=== PATIENT | female | born 1975 | race Caucasian/White ===

== ENCOUNTER 2017-09-17 11:16 | Emergency (ER) | payer SELFPAY ==
[~2017-09-17] VITALS: Ht 172.7 cm; Wt 130.2 kg
[~2017-09-17 11:16] MED LIST: ACHYD1T PO; CEPH500C PO; DCS100C PO; DOCO100C PO; IBP800T PO; PREN-115 PO
[2017-09-17] MEDS ORDERED: ORPHENADRINE 60 MG/2 ML (NORFLEX) AMP IV ONE (11:45)
[2017-09-17] MEDS ORDERED: KETOROLAC 30 MG/ML VIAL IVP ONE (11:45)
--- NOTE | 2017-09-17 11:48 | ED Back Pain ---
General Chief Complaint: Back Problems Stated Complaint: BACK PAIN--FALL X 1DAY Source of Information: Patient Exam Limitations: No Limitations History of Present Illness Date Seen by Provider: Sep 17, 2017 Time Seen by Provider: 11:45 Initial Comments To ER with reports of low back pain worse than usual that started yesterday after a fall. The pain is very low back left of midline and inferior to her incision from previous back surgery. She's had a couple of discectomies and has seen Dr. Olivares at [facility]. She is on hydrocodone and baclofen for her chronic low back pain. Last night, upon standing she lost control of urine, did not have the urge to urinate. She denies any saddle anesthesia. The pain does radiate down the left leg. Allergies and Home Medications Allergies Coded Allergies: morphine (Unverified Allergy, Unknown, NAUSEA, 04/14/12) Emesis promethazine HCl (Unverified Allergy, Unknown, 04/14/12) Restless Legs Patient Home Medication List Home Medication List Reviewed: Yes Constitutional: see HPI, No chills, No fever EENTM: see HPI Respiratory: no symptoms reported Cardiovascular: no symptoms reported Genitourinary: no symptoms reported Musculoskeletal: see HPI, back pain Skin: no symptoms reported Psychiatric/Neurological: No Symptoms Reported Past Xnnhoqm-Fvbzhv-Zfuqbw Hx Patient Social History Alcohol Use: Denies Use Recreational Drug Use: No Smoking Status: Current Everyday Smoker Type Used: Cigarettes Recent Foreign Travel: No Contact w/Someone Who Travel: No Recent Hopitalizations: No Physical Abuse: No Sexual Abuse: No Immunizations Up To Date Date of Influenza Vaccine: Mar 29, 2012 Surgeries History of Surgeries: Yes (gallbladder-2004) Surgeries: Section Respiratory History of Respiratory Disorde: No Cardiovascular History of Cardiac Disorders: No Cardiac Disorders: High Cholesterol Neurological History of Neurological Disord: Yes Neurological Disorders: Headaches /Migraines Reproductive System Hx Reproductive Disorders: No Genitourinary History of Genitourinary Disor: No Gastrointestinal History of Gastrointestinal Di: Yes Musculoskeletal History of Musculoskeletal Dis: Yes Musculoskeletal Disorders: Back Injury, Chronic Back Pain Endocrine History of Endocrine Disorders: Yes Endocrine Disorders: Diabetes, Non-Insulin dep Psychosocial History of Psychiatric Problem: No Suicide Risk Score: 0 Integumentary History of Skin or Integumenta: No Blood Transfusions History of Blood Disorders: No Physical Exam Vital Signs Vital Signs - First Documented 09/17/17 11:25 Temp 97.9 Pulse 108 Resp 18 B/P (MAP) 127/90 (102) Pulse Ox 99 Capillary Refill : General Appearance: No Apparent Distress, WD/WN, Obese HEENT: PERRL/EOMI, TMs Normal Neck: Full Range of Motion, Normal Inspection Respiratory: No Accessory Muscle Use, No Respiratory Distress Gastrointestinal: Normal Bowel Sounds, Non Tender, Soft Extremity: Normal Capillary Refill, Normal Inspection Neurologic/Psychiatric: Alert, Oriented x3 Skin: Normal Color, Warm/Dry Progress/Results/Core Measures Results/Orders Lab Results Laboratory Tests Test 09/17/17 13:35 Range/Units Urine Color YELLOW Urine Clarity CLEAR Urine pH 6 5-9 Urine Specific [place] 1.010 L 1.016-1.022 Urine Protein NEGATIVE NEGATIVE Urine Glucose (UA) NEGATIVE NEGATIVE Urine Ketones NEGATIVE NEGATIVE Urine Nitrite NEGATIVE NEGATIVE Urine Bilirubin NEGATIVE NEGATIVE Urine Urobilinogen NORMAL NORMAL MG/DL Urine Leukocyte Esterase NEGATIVE NEGATIVE Urine RBC (Auto) 1+ H NEGATIVE Urine RBC NONE /HPF Urine WBC RARE /HPF Urine Squamous Epithelial Cells 5-10 /HPF Urine Crystals NONE /LPF Urine Bacteria TRACE /HPF Urine Casts NONE /LPF Urine Mucus SMALL H /LPF Urine Culture Indicated NO My Orders Orders - LIVIA TOLBERT APRN Saline Lock/Iv-Start (09/17/17 11:44) Orphenadrine Injection (Norflex Injectio (09/17/17 11:45) Mri Lumbar Spine W/O Contrast (09/17/17 11:44) Ketorolac Injection (Toradol Injection) (09/17/17 11:45) Ua Culture If Indicated (09/17/17 12:21) Medications Given in ED Current Medications Medications Dose Ordered Sig/Candy Route Start Time Stop Time Status Last Admin Dose Admin Ketorolac Tromethamine 30 mg ONCE ONCE IVP 09/17/17 11:45 09/17/17 11:46 DC 09/17/17 12:13 30 MG Orphenadrine Citrate 60 mg ONCE ONCE IV 09/17/17 11:45 09/17/17 11:46 DC 09/17/17 12:09 60 MG Vital Signs/I&O Vital Sign - Last 12Hours 09/17/17 11:25 Temp 97.9 Pulse 108 Resp 18 B/P (MAP) 127/90 (102) Pulse Ox 99 Diagnostic Imaging Diagonstic Imaging: MRI Comments NAME: G[facility]LO [facility] REC#: [id number] PT STATUS: REG ER : 1975 PHYSICIAN: LIVIA TOLBERT APRN ADMIT DATE: 09/17/17/ER Draft Date of Exam:09/17/17 MRI LUMBAR SPINE W/O CONTRAST PROCEDURE: MRI lumbar spine. TECHNIQUE: A multiplanar/multisequence MRI of the lumbar spine was performed without contrast. INDICATION: Long history of low back pain with three prior surgeries. The patient had a recent fall with increased pain. COMPARISON: No prior examinations are available for comparison. FINDINGS: The alignment of the lumbar spine is grossly normal. The vertebral body heights are well-maintained. There is no spondylolysis or spondylolisthesis. No fractures are identified. The conus medullaris is seen at L1 and is normal in appearance. T11-12: Unremarkable. T12-L1: Unremarkable. L1-2: There is some hypertrophic degenerative facet disease. There is no annular bulging. There is no spinal or neuroforaminal encroachment. L2-3: There is marked broad-based annular bulging and severe facet disease with thickening of the ligamentum flavum. There is severe central spinal stenosis with marked encroachment upon the lateral recess bilaterally. There is moderate bilateral neuroforaminal encroachment. L3-4: There is some broad-based annular bulging, facet disease, and thickening of the ligamentum flavum. There is encroachment upon the lateral recess bilaterally, right greater than left. There is mild central spinal stenosis. There is at least moderate right neuroforaminal encroachment and mild to moderate left neuroforaminal encroachment. L4-5: There is broad-based annular bulging and facet disease. There is encroachment upon the right lateral recess. There is moderately severe right neuroforaminal encroachment. There is moderate left neuroforaminal encroachment. L5-S1: The disc demonstrates minimal annular bulging. The abdominal aorta is nonaneurysmal. The kidneys are unremarkable. IMPRESSION: Moderately severe diffuse lumbar spondylosis and multilevel degenerative disc disease as discussed above. This is most severe at L2-3. Dictated on workstation # [id number] Dict: 09/17/17 1330 Trans: 09/17/17 1341 [id number] Interpreted by: WARREN SALAZAR MD Electronically signed by: Departure Communication (Admissions) Progress Notes Due to concern for neurogenic bladder/cauda equina syndrome we'll proceed with MRI lumbar spine. 1355-she does have the urge to urinate and was able to provide us with a urine sample so is not a neurogenic bladder. Postvoid residual bladder scan pending. 1401-Post void residual bladder scan 20ml Impression Impression: Primary Impression: Lumbar spinal stenosis Disposition: HOME, SELF-CARE Condition: Stable Departure-Patient Inst. Decision time for Depature: 14:01 Referrals: [facility] Primary Care Physician MARCELINO MORRIS (Family) Primary Care Physician Patient Instructions: Spinal Stenosis (DC), Spinal Stenosis Strengthening Exercises, Spinal Stenosis Stretching Exercises Add. Discharge Instructions: 1. REturn to ER for any concerns 2. Follow up with Dr Olivares. Call Indira his energy scheduler direct at [phone] today to make an appointment 3. All discharge instructions reviewed with patient and/or family. Voiced understanding. Images Torso/Trunk 1 - Tenderness Copy Copies To 1: TRELL OLIVARES MD, PETER J APRN Sep 17, 2017 11:48
[2017-09-17] MEDS ORDERED: BACL10TA (11:50)
[2017-09-17] MEDS ORDERED: ATOR10TA66 (11:50)
[2017-09-17] MEDS ORDERED: GABA-488 (11:50)
[2017-09-17] MEDS ORDERED: DULO60CA58 (11:50)
[2017-09-17] MEDS ORDERED: METF500T8 (11:50)
[2017-09-17] MEDS ORDERED: HYDR-3820 (11:50)
[2017-09-17 13:42] LABS: BILIRUBIN,URINE NEGATIVE (NEGATIVE); CLARITY,URINE CLEAR; COLOR,URINE YELLOW; GLUCOSE, URINE (UA) NEGATIVE (NEGATIVE); KETONES,URINE NEGATIVE (NEGATIVE); LEUKOCYTE ESTERASE ,URINE NEGATIVE (NEGATIVE); NITRITE,URINE NEGATIVE (NEGATIVE); PH,URINE 6 (5-9); PROTEIN,URINE NEGATIVE (NEGATIVE); UROBILINOGEN,URINE NORMAL (NORMAL)
--- NOTE | 2017-09-17 13:42 | Diagnostic Imaging Report ---
PROCEDURE: MRI lumbar spine. TECHNIQUE: A multiplanar/multisequence MRI of the lumbar spine was performed without contrast. INDICATION: Long history of low back pain with three prior surgeries. The patient had a recent fall with increased pain. COMPARISON: No prior examinations are available for comparison. FINDINGS: The alignment of the lumbar spine is grossly normal. The vertebral body heights are well-maintained. There is no spondylolysis or spondylolisthesis. No fractures are identified. The conus medullaris is seen at L1 and is normal in appearance. T11-12: Unremarkable. T12-L1: Unremarkable. L1-2: There is some hypertrophic degenerative facet disease. There is no annular bulging. There is no spinal or neuroforaminal encroachment. L2-3: There is marked broad-based annular bulging and severe facet disease with thickening of the ligamentum flavum. There is severe central spinal stenosis with marked encroachment upon the lateral recess bilaterally. There is moderate bilateral neuroforaminal encroachment. L3-4: There is some broad-based annular bulging, facet disease, and thickening of the ligamentum flavum. There is encroachment upon the lateral recess bilaterally, right greater than left. There is mild central spinal stenosis. There is at least moderate right neuroforaminal encroachment and mild to moderate left neuroforaminal encroachment. L4-5: There is broad-based annular bulging and facet disease. There is encroachment upon the right lateral recess. There is moderately severe right neuroforaminal encroachment. There is moderate left neuroforaminal encroachment. L5-S1: The disc demonstrates minimal annular bulging. The abdominal aorta is nonaneurysmal. The kidneys are unremarkable. IMPRESSION: Moderately severe diffuse lumbar spondylosis and multilevel degenerative disc disease as discussed above. This is most severe at L2-3. Dictated by: Dictated on workstation # [id number]
[2017-09-17 14:05] LABS: BACTERIA,URINE TRACE /HPF; WBC,URINE RARE /HPF
[2017-09-17 14:28] VITALS: BP 127/82
== END 2017-09-17 14:28 | disposition home or self-care (01) ==
LOC: EDUNIT# 11:16 → ER 11:18
DX: M48.061 Spinal stenosis, lumbar region without neurogenic claudication (principal); G43.909 Migraine, unspecified, not intractable, without status migrainosus; E78.00 Pure hypercholesterolemia, unspecified; E11.9 Type 2 diabetes mellitus without complications; F17.210 Nicotine dependence, cigarettes, uncomplicated; Z87.59 Personal history of other complications of pregnancy, childbirth and the puerperium; Z88.5 Allergy status to narcotic agent; Z88.8 Allergy status to other drugs, medicaments and biological substances
CPT/HCPCS: 72148; 81000; 96374; 96375

== ENCOUNTER 2019-08-20 18:49 | Emergency (ER) | payer OTHER ==
[~2019-08-20 18:49] MED LIST changes: +ATOR10TA66; +BACL10TA; +DULO60CA59; +GABA-488; +HYDR-3820; +METF500T19
== END 2019-08-20 19:31 | disposition left against medical advice (07) ==
LOC: EDUNIT# 18:49 → ER 18:51
DX: M54.2 Cervicalgia (principal); W19.XXXA Unspecified fall, initial encounter

== ENCOUNTER 2020-07-18 12:06 | Emergency (ER) | payer MEDICARE, OTHER ==
[~2020-07-18] VITALS: Ht 173 cm; Wt 109.0 kg
[~2020-07-18 12:06] MED LIST changes: +ACHYD1T; -HYDR-3820; +METF-865; -METF500T19
[2020-07-18] MEDS ORDERED: ALPRAZolam 0.5 MG (XANAX) TAB PO SCH (12:45)
--- NOTE | 2020-07-18 12:45 | NUR ---
report given to wilfred.
--- NOTE | 2020-07-18 12:45 | ED Psychosocial ---
General Chief Complaint: Psych/Social Disorder Stated Complaint: PSYCH EVAL Source: patient Exam Limitations: no limitations History of Present Illness Date Seen by Provider: Jul 18, 2020 Time Seen by Provider: 12:43 Initial Comments To ER by private vehicle with request for help with the anxiety attacks and mental health. She recently left her as she states he is very controlling and has PTSD that he will not treat. She has had some intermittent depression over the years. About 2 weeks ago she developed racing thoughts intermittent panic attacks. She drove to [place] and ended up stuck out in a field and believed that she was talking to God. She talks at length about her right brain talking to her left brain. She states that she does not have any thoughts of hurting herself or anyone else and ideally she would like to start some medication today and get established with someone to be seen for mental health. Timing/Duration: constant Severity: moderate Associated Symptoms: anxiety, impaired concentration Allergies and Home Medications Allergies Coded Allergies: morphine (Unverified Allergy, Unknown, NAUSEA, 04/14/12) Emesis promethazine HCl (Unverified Allergy, Unknown, 04/14/12) Restless Legs Home Medications Lorazepam 1 Mg Tablet, 1 MG PO BID PRN for ANXIETY Prescribed by: LIVIA TOLBERT on 07/18/20 1351 Patient Home Medication List Home Medication List Reviewed: Yes Review of Systems Constitutional: see HPI EENTM: see HPI Respiratory: no symptoms reported Cardiovascular: no symptoms reported Genitourinary: no symptoms reported Musculoskeletal: no symptoms reported Skin: no symptoms reported Psychiatric/Neurological: See HPI, Anxiety, Depressed Past Qgpofgs-Yeavtg-Oduijo Hx Patient Social History Type Used: Cigarettes Recent Hopitalizations: No Immunizations Up To Date Date of Influenza Vaccine: Mar 29, 2012 Past Medical History Surgeries: Yes (gallbladder-2004) Section Respiratory: No Cardiac: No High Cholesterol Neurological: Yes Headaches /Migraines Reproductive Disorders: No Genitourinary: No Gastrointestinal: Yes Musculoskeletal: Yes Back Injury, Chronic Back Pain Endocrine: Yes Diabetes, Non-Insulin dep Psychosocial: No Integumentary: No Blood Disorders: No Physical Exam Vital Signs - First Documented 07/18/20 12:30 Temp 36.9 Pulse 107 Resp 18 B/P (MAP) 173/137 (149) Pulse Ox 95 O2 Delivery Room Air Capillary Refill : Height, Weight, BMI Height: 5'8.00" Weight: 287lbs. 1.0oz. 130.777260so; 43.3 BMI Method:Stated General Appearance: WD/WN, no apparent distress HEENT: PERRL/EOMI, normal ENT inspection Respiratory: no respiratory distress, no accessory muscle use Neurologic/Psychiatric: alert, normal mood/affect, oriented x 3 Appearance/Memory: appropriate appearance, appropriate insight, neat Thoughts/Hallucinations: normal thought pattern, no apparent hallucination Skin: normal color, warm/dry Clean cooperative pleasant no apparent hallucinations or delusions at this time. She is intermittently tearful Progress/Results/Core Measures Results/Orders Lab Results Laboratory Tests Test 07/18/20 12:48 Range/Units White Blood Count 10.8 4.3-11.0 10^3/uL Red Blood Count 5.29 H 3.80-5.11 10^6/uL Hemoglobin 15.1 11.5-16.0 g/dL Hematocrit 45 35-52 % Mean Corpuscular Volume 86 80-99 fL Mean Corpuscular Hemoglobin 29 25-34 pg Mean Corpuscular Hemoglobin Concent 33 32-36 g/dL Red Cell Distribution Width 14.4 10.0-14.5 % Platelet Count 302 130-400 10^3/uL Mean Platelet Volume 11.5 9.0-12.2 fL Immature Granulocyte % (Auto) 0 % Neutrophils (%) (Auto) 80 H 42-75 % Lymphocytes (%) (Auto) 12 12-44 % Monocytes (%) (Auto) 7 0-12 % Eosinophils (%) (Auto) 0 0-10 % Basophils (%) (Auto) 0 0-10 % Neutrophils # (Auto) 8.6 H 1.8-7.8 10^3/uL Lymphocytes # (Auto) 1.3 1.0-4.0 10^3/uL Monocytes # (Auto) 0.8 0.0-1.0 10^3/uL Eosinophils # (Auto) 0.0 0.0-0.3 10^3/uL Basophils # (Auto) 0.0 0.0-0.1 10^3/uL Immature Granulocyte # (Auto) 0.0 0.0-0.1 10^3/uL Sodium Level 143 135-145 MMOL/L Potassium Level 3.7 3.6-5.0 MMOL/L Chloride Level 109 H 98-107 MMOL/L Carbon Dioxide Level 22 21-32 MMOL/L Anion Gap 12 5-14 MMOL/L Blood Urea Nitrogen 12 7-18 MG/DL Creatinine 0.84 0.60-1.30 MG/DL Estimat Glomerular Filtration Rate > 60 BUN/Creatinine Ratio 14 Glucose Level 133 H 70-105 MG/DL Calcium Level 10.1 8.5-10.1 MG/DL Corrected Calcium 8.5-10.1 MG/DL Total Bilirubin 0.3 0.1-1.0 MG/DL Aspartate Amino Transf (AST/SGOT) 19 5-34 U/L Alanine Aminotransferase (ALT/SGPT) 15 0-55 U/L Alkaline Phosphatase 91 40-136 U/L Total Protein 8.3 H 6.4-8.2 GM/DL Albumin 4.6 H 3.2-4.5 GM/DL Thyroid Stimulating Hormone (TSH) 1.95 0.35-4.94 UIU/ML Free Thyroxine 1.06 0.70-1.48 NG/DL My Orders Orders - LIVIA TOLBERT APRN Cbc With Automated Diff (07/18/20 12:33) Comprehensive Metabolic Panel (07/18/20 12:33) Alprazolam Tablet (Xanax Tablet) (07/18/20 12:45) Thyroid Stimulating Hormone (07/18/20 12:41) Free T4 (Free Thyroxine) (07/18/20 12:41) Vital Signs/I&O 07/18/20 12:30 Temp 36.9 Pulse 107 Resp 18 B/P (MAP) 173/137 (149) Pulse Ox 95 O2 Delivery Room Air Departure Impression Primary Impression: Anxiety Disposition: 01 HOME, SELF-CARE Condition: Stable Departure-Patient Inst. Decision time for Depature: 13:24 Referrals: NO,LOCAL PHYSICIAN (PCP/Family) Primary Care Physician Patient Instructions: Anxiety, Adult (DC) Add. Discharge Instructions: 1. Return to Er for any concerns 2. Follow up with your doctor as scheduled. [facility] can see you at the [place] location on August 17 at 10 AM. Alternatively [facility] was given your phone number and will call you to set up an appointment tomorrow since today is a [place] [id number] [facility] [id number], [place] [address] All discharge instructions reviewed with patient and/or family. Voiced understanding. Scripts Lorazepam (Ativan) 1 Mg Tablet 1 MG PO BID PRN for ANXIETY for 7 Days, #14 TAB Prov: LIVIA TOLBERT APRN 07/18/20 LIVIA TOLBERT APRN Jul 18, 2020 12:45
[2020-07-18 12:55] LABS: BASOPHILS % (AUTO) 0 % (0-10); EOSINOPHILS % (AUTO) 0 % (0-10); HEMATOCRIT 45 % (35-52); HEMOGLOBIN 15.1 g/dL (11.5-16.0); LYMPHOCYTES # (AUTO) 1.3 10^3/uL (1.0-4.0); LYMPHOCYTES % (AUTO) 12 % (12-44); MEAN CORPUSCULAR HEMOGLOBIN 29 pg (25-34); MEAN CORPUSCULAR HGB CONC 33 g/dL (32-36); MEAN CORPUSCULAR VOLUME 86 fL (80-99); MEAN PLATELET VOLUME 11.5 fL (9.0-12.2); MONOCYTES # (AUTO) 0.8 10^3/uL (0.0-1.0); MONOCYTES % (AUTO) 7 % (0-12); NEUTROPHILS # (AUTO) 8.6 10^3/uL (1.8-7.8); NEUTROPHILS % (AUTO) 80 % (42-75); PLATELET COUNT 302 10^3/uL (130-400); WHITE BLOOD COUNT 10.8 10^3/uL (4.3-11.0)
[2020-07-18 13:10] LABS: ALBUMIN 4.6 GM/DL (3.2-4.5)
[2020-07-18 13:11] LABS: CHLORIDE 109 MMOL/L (98-107); POTASSIUM 3.7 MMOL/L (3.6-5.0); SODIUM 143 MMOL/L (135-145)
[2020-07-18 13:12] LABS: CALCIUM 10.1 MG/DL (8.5-10.1)
[2020-07-18 13:13] LABS: GLUCOSE 133 MG/DL (70-105); TOTAL PROTEIN 8.3 GM/DL (6.4-8.2)
[2020-07-18 13:14] LABS: CARBON DIOXIDE 22 MMOL/L (21-32)
[2020-07-18 13:15] LABS: BILIRUBIN,TOTAL 0.3 MG/DL (0.1-1.0)
[2020-07-18 13:16] LABS: ALKALINE PHOSPHATASE 91 U/L (40-136)
[2020-07-18 13:17] LABS: CREATININE SERUM 0.84 MG/DL (0.60-1.30); GFR ESTIMATED > 60
[2020-07-18 13:18] LABS: BUN/CREATININE RATIO 14
[2020-07-18 13:19] LABS: ALANINE AMINOTRANSFERASE 15 U/L (0-55)
[2020-07-18 13:40] LABS: FREE T4 (FREE THYROXINE) 1.06 NG/DL (0.70-1.48)
[2020-07-18] MEDS ORDERED: LORA-405 PO (13:51)
[2020-07-18 13:58] VITALS: BP 129/70
== END 2020-07-18 13:58 | disposition home or self-care (01) ==
LOC: EDUNIT# 12:06 → ER 12:07
DX: F41.9 Anxiety disorder, unspecified (principal); Z88.5 Allergy status to narcotic agent; Z88.8 Allergy status to other drugs, medicaments and biological substances
CPT/HCPCS: 36415; 80053; 84439; 84443; 85025; 99283

== ENCOUNTER 2020-11-03 08:08 | Emergency (ER) | payer MEDICARE ==
[~2020-11-03] VITALS: Ht 172 cm; Wt 132.0 kg
[~2020-11-03 08:08] MED LIST changes: +LORA-405 PO
--- NOTE | 2020-11-03 08:32 | ED Psychosocial ---
General Stated Complaint: PSYCH EVAL Source: patient Exam Limitations: no limitations History of Present Illness Date Seen by Provider: November 03, 2020 Time Seen by Provider: 08:20 Initial Comments Nina is a 45-year-old female who presents to the emergency department by private vehicle today with a chief complaint of feeling anxiety and depression and having the sensation of bugs crawling all under her skin. Patient has a history of mental illness and is currently on psychiatric medications including Zyprexa. Most recent hospitalization was at [facility] about 2 weeks ago. Patient states at that time she had the Zyprexa added. Patient denies suicidal or homicidal ideation. She does have a previous suicide attempt via overdose. She denies hearing voices or visual hallucinations. She states she does have a history of hearing voices in the past. She denies any recent illnesses such as fevers, chills, cough or congestion. She denies chest pain, abdominal pain. She states that she does not really feel safe at home. She does live at home with a and son. Patient states that she just wants to get rid of the sensation of having bugs crawling underneath her skin. She believes that she needs hospitalization. The patient was at [facility] emergency department earlier yesterday and states that "she accessed my subconscious and I wasn't unable to stay". All other review of systems reviewed and negative except as stated above. Timing/Duration: getting worse Severity: moderate Associated Symptoms: anxiety, impaired concentration Allergies and Home Medications Allergies Coded Allergies: morphine (Unverified Allergy, Unknown, NAUSEA, 04/14/12) Emesis promethazine HCl (Unverified Allergy, Unknown, 04/14/12) Restless Legs Home Medications Lorazepam 1 Mg Tablet, 1 MG PO BID PRN for ANXIETY Prescribed by: LIVIA TOLBERT on 07/18/20 1351 Patient Home Medication List Home Medication List Reviewed: Yes Review of Systems Constitutional: see HPI EENTM: no symptoms reported Respiratory: no symptoms reported Cardiovascular: no symptoms reported Gastrointestinal: no symptoms reported Genitourinary: no symptoms reported Musculoskeletal: no symptoms reported Skin: other (Feeling of bugs underneath her skin) Psychiatric/Neurological: Anxiety, Depressed, Emotional Problems, Paresthesia Past Pruustu-Kvnzjp-Jaydwf Hx Patient Social History Type Used: Cigarettes Recent Hopitalizations: No Immunizations Up To Date Date of Influenza Vaccine: Mar 29, 2012 Past Medical History Surgeries: Yes (gallbladder-2004) Section Respiratory: No Cardiac: No High Cholesterol Neurological: Yes Headaches /Migraines Reproductive Disorders: No Genitourinary: No Gastrointestinal: Yes Musculoskeletal: Yes Back Injury, Chronic Back Pain Endocrine: Yes Diabetes, Non-Insulin dep Psychosocial: No Integumentary: No Blood Disorders: No Physical Exam Vital Signs - First Documented 11/03/20 08:14 Temp 35.7 Pulse 85 Resp 20 B/P (MAP) 143/95 (111) Pulse Ox 100 Capillary Refill : Height, Weight, BMI Height: 5'8.00" Weight: 287lbs. 1.0oz. [id number]; 36.00 BMI Method:Stated General Appearance: WD/WN, no apparent distress HEENT: PERRL/EOMI Neck: normal inspection Respiratory: lungs clear, normal breath sounds, no respiratory distress, no accessory muscle use Cardiovascular: regular rate, rhythm Gastrointestinal: normal bowel sounds, non tender, soft Extremities: normal inspection Neurologic/Psychiatric: cheese cutter II-XII nml as tested, no motor/sensory deficits, alert, normal mood/affect, oriented x 3 Appearance/Memory: appropriate appearance, neat, no memory impairment Behavior/Eye Contact: cooperative, good eye contact (fair eye contact) Thoughts/Hallucinations: delusions, paranoid Skin: normal color, warm/dry Progress/Results/Core Measures Results/Orders Lab Results Laboratory Tests Test 11/03/20 09:20 11/03/20 09:45 11/03/20 10:37 Range/Units Coronavirus 2019 (ANDREI) Not Detected Not Detecte White Blood Count 7.9 4.3-11.0 10^3/uL Red Blood Count 4.49 3.80-5.11 10^6/uL Hemoglobin 12.6 11.5-16.0 g/dL Hematocrit 40 35-52 % Mean Corpuscular Volume 88 80-99 fL Mean Corpuscular Hemoglobin 28 25-34 pg Mean Corpuscular Hemoglobin Concent 32 32-36 g/dL Red Cell Distribution Width 14.3 10.0-14.5 % Platelet Count 262 130-400 10^3/uL Mean Platelet Volume 11.4 9.0-12.2 fL Immature Granulocyte % (Auto) 0 % Neutrophils (%) (Auto) 71 42-75 % Lymphocytes (%) (Auto) 21 12-44 % Monocytes (%) (Auto) 8 0-12 % Eosinophils (%) (Auto) 1 0-10 % Basophils (%) (Auto) 1 0-10 % Neutrophils # (Auto) 5.5 1.8-7.8 10^3/uL Lymphocytes # (Auto) 1.6 1.0-4.0 10^3/uL Monocytes # (Auto) 0.6 0.0-1.0 10^3/uL Eosinophils # (Auto) 0.0 0.0-0.3 10^3/uL Basophils # (Auto) 0.0 0.0-0.1 10^3/uL Immature Granulocyte # (Auto) 0.0 0.0-0.1 10^3/uL Sodium Level 139 135-145 MMOL/L Potassium Level 3.6 3.6-5.0 MMOL/L Chloride Level 106 98-107 MMOL/L Carbon Dioxide Level 23 21-32 MMOL/L Anion Gap 10 5-14 MMOL/L Blood Urea Nitrogen 14 7-18 MG/DL Creatinine 0.81 0.60-1.30 MG/DL Estimat Glomerular Filtration Rate > 60 BUN/Creatinine Ratio 17 Glucose Level 113 H 70-105 MG/DL Calcium Level 9.2 8.5-10.1 MG/DL Corrected Calcium 9.0 8.5-10.1 MG/DL Total Bilirubin 0.3 0.1-1.0 MG/DL Aspartate Amino Transf (AST/SGOT) 45 H 5-34 U/L Alanine Aminotransferase (ALT/SGPT) 14 0-55 U/L Alkaline Phosphatase 85 40-136 U/L Total Protein 7.5 6.4-8.2 GM/DL Albumin 4.3 3.2-4.5 GM/DL Serum Test, Qualitative NEGATIVE NEGATIVE Salicylates Level < 5.0 L 5.0-20.0 MG/DL Acetaminophen Level < 10 L 10-30 UG/ML Serum Alcohol < 10 <10 MG/DL Urine Opiates Screen NEGATIVE NEGATIVE Urine Oxycodone Screen NEGATIVE NEGATIVE Urine Methadone Screen NEGATIVE NEGATIVE Urine Propoxyphene Screen NEGATIVE NEGATIVE Urine Barbiturates Screen NEGATIVE NEGATIVE Ur Tricyclic Antidepressants Screen NEGATIVE NEGATIVE Urine Phencyclidine Screen NEGATIVE NEGATIVE Urine Amphetamines Screen NEGATIVE NEGATIVE Urine Methamphetamines Screen NEGATIVE NEGATIVE Urine Benzodiazepines Screen NEGATIVE NEGATIVE Urine Cocaine Screen NEGATIVE NEGATIVE Urine Cannabinoids Screen NEGATIVE NEGATIVE My Orders Orders - LASHAY,FLAVIA M MD Cbc With Automated Diff (11/03/20 08:32) Comprehensive Metabolic Panel (11/03/20 08:32) Alcohol (11/03/20 08:32) Salicylate (11/03/20 08:32) Acetaminophen (11/03/20 08:32) Drug Screen Stat (Urine) (11/03/20 08:32) Hcg,Qualitative Serum (11/03/20 08:32) Covid 19 Inhouse Test (11/03/20 08:32) General/Regular (11/03/20 Breakfast) Ibuprofen Tablet (Motrin Tablet) (11/03/20 12:45) Vital Signs/I&O 11/03/20 08:14 Temp 35.7 Pulse 85 Resp 20 B/P (MAP) 143/95 (111) Pulse Ox 100 Progress Progress Note : Time: 10:41 Progress Note patient to the bathroom to get a urine made a call to [facility], they need the drug screen before they will contact the psych resident sap consultant [id number] talked to [facility] again, they asked the chart to be faxed to the resident sap consultant and Dr Young [id number] Psychiatric resident called back and stated they would be unable to accept Ms. Rivers to the unit secondary to her behaviors on the unit when she was on a hold about 2 weeks ago. They did not believe that inpatient care at this time would be beneficial to her. I discussed this with the patient. She actually believes at this time she is feeling little bit better. She does not want to go inpatient at this time. She again reiterates that she is having no suicidal thoughts/intent/plan. Patient states that she has follow-up appointments with [facility] on December 13 and shows me the card with her appointment scheduled. She also has an appointment scheduled through [facility]. She does not recall the date of this appointment but states that she will call to get in for a telehealth therapy appointment. Patient does not believe that the Zyprexa she was started on a couple of weeks ago is "for her". She is going to stop taking this medication and continue her Zoloft trazodone and Abilify. She at this time does not appear to be a threat to herself or others. She is not currently having any hallucinations. She is comfortable with the plan of care that being discharged. All questions are sought and answered. Initial ECG Impression Date: November 03, 2020 Departure Impression Primary Impression: Depression Qualified Codes: F32.9 - Major depressive disorder, single episode, u nspecified Additional Impression: Psychosis Qualified Codes: F29 - Unspecified psychosis not due to a substance or known physiological condition Disposition: 01 HOME, SELF-CARE Condition: Stable Departure-Patient Inst. Decision time for Depature: 12:43 Referrals: [facility],LOCAL PHYSICIAN (PCP) Primary Care Physician Patient Instructions: Depression Add. Discharge Instructions: Continue your Zoloft, trazodone and Abilify as scheduled and prescribed. Please keep your follow-up appointments with [facility] as well as [facility]. Come back to the emergency room if you have any thoughts of harming yourself or others, if you have any hallucinations, or if your depression and anxiety are worsening. FLAVIA METZ MD November 03, 2020 08:32
[2020-11-03 09:54] LABS: BASOPHILS % (AUTO) 1 % (0-10); EOSINOPHILS % (AUTO) 1 % (0-10); HEMATOCRIT 40 % (35-52); HEMOGLOBIN 12.6 g/dL (11.5-16.0); LYMPHOCYTES # (AUTO) 1.6 10^3/uL (1.0-4.0); LYMPHOCYTES % (AUTO) 21 % (12-44); MEAN CORPUSCULAR HEMOGLOBIN 28 pg (25-34); MEAN CORPUSCULAR HGB CONC 32 g/dL (32-36); MEAN CORPUSCULAR VOLUME 88 fL (80-99); MEAN PLATELET VOLUME 11.4 fL (9.0-12.2); MONOCYTES # (AUTO) 0.6 10^3/uL (0.0-1.0); MONOCYTES % (AUTO) 8 % (0-12); NEUTROPHILS # (AUTO) 5.5 10^3/uL (1.8-7.8); NEUTROPHILS % (AUTO) 71 % (42-75); PLATELET COUNT 262 10^3/uL (130-400); WHITE BLOOD COUNT 7.9 10^3/uL (4.3-11.0)
[2020-11-03 10:07] LABS: ALBUMIN 4.3 GM/DL (3.2-4.5); CHLORIDE 106 MMOL/L (98-107); POTASSIUM 3.6 MMOL/L (3.6-5.0); SODIUM 139 MMOL/L (135-145)
[2020-11-03 10:08] LABS: CALCIUM 9.2 MG/DL (8.5-10.1)
[2020-11-03 10:10] LABS: GLUCOSE 113 MG/DL (70-105); TOTAL PROTEIN 7.5 GM/DL (6.4-8.2)
[2020-11-03 10:11] LABS: BILIRUBIN,TOTAL 0.3 MG/DL (0.1-1.0); CARBON DIOXIDE 23 MMOL/L (21-32)
[2020-11-03 10:13] LABS: ALKALINE PHOSPHATASE 85 U/L (40-136); CREATININE SERUM 0.81 MG/DL (0.60-1.30); GFR ESTIMATED > 60
[2020-11-03 10:15] LABS: BUN/CREATININE RATIO 17
[2020-11-03 10:16] LABS: ALANINE AMINOTRANSFERASE 14 U/L (0-55); SALICYLATE < 5.0 MG/DL (5.0-20.0)
[2020-11-03 10:19] LABS: ACETAMINOPHEN < 10 UG/ML (10-30)
[2020-11-03 11:01] LABS: AMPHETAMINE SCREEN, URINE NEGATIVE (NEGATIVE); BARBITURATE SCREEN URINE NEGATIVE (NEGATIVE); BENZODIAZEPINES SCREEN URINE NEGATIVE (NEGATIVE); CANNABINOID SCREEN, URINE NEGATIVE (NEGATIVE); COCAINE SCREEN URINE NEGATIVE (NEGATIVE); METHADONE STAT NEGATIVE (NEGATIVE); METHAMPHETAMINE SCREEN URINE S NEGATIVE (NEGATIVE); OPIATE SCREEN URINE NEGATIVE (NEGATIVE); OXYCODONE STAT NEGATIVE (NEGATIVE); PROPOXYPHENE STAT NEGATIVE (NEGATIVE); TRICYCLIC ANTIDEPRESSANTS SCRE NEGATIVE (NEGATIVE)
[2020-11-03] MEDS ORDERED: IBUPROFEN 600 MG (MOTRIN) TAB PO ONE (12:45)
[2020-11-03 12:52] VITALS: BP 142/90
== END 2020-11-03 12:52 | disposition home or self-care (01) ==
LOC: EDUNIT# 08:08 → ER 08:10
DX: F32.9 Major depressive disorder, single episode, unspecified (principal); F29 Unspecified psychosis not due to a substance or known physiological condition; E11.9 Type 2 diabetes mellitus without complications; F41.9 Anxiety disorder, unspecified; Z20.822 Contact with and (suspected) exposure to COVID-19; Z88.5 Allergy status to narcotic agent; Z88.8 Allergy status to other drugs, medicaments and biological substances
CPT/HCPCS: 80053; 80306; 84703; 85025; 99283; G0480 ×3; U0002; 36415; 80320; 80329; 87635

== ENCOUNTER 2020-11-03 13:58 | Emergency (ER) | payer MEDICARE ==
[~2020-11-03] VITALS: Ht 172 cm; Wt 132.0 kg
--- NOTE | 2020-11-03 14:35 | ED Psychosocial ---
General Chief Complaint: Psych/Social Disorder Stated Complaint: PSYCH EVAL Nursing Triage Note: PT CHECKING BACK INTO ED STATES HAS BEEN OUTSIDE IN CHAIR, WAITING FOR RIDE HOME THAT NEVER HAS SHOWN UP. PT STATES HEARING VOICES. PT DENIES SUICIDAL IDEATION. PT STATES THOUGHT SHE COULD GO HOME BUT THINKS SHE NEEDS TO BE HOSPITALIZED. EXPLAINED THAT [facility] NOT HAVE INPATIENT PSYCH. Source: patient Exam Limitations: no limitations History of Present Illness Date Seen by Provider: November 03, 2020 Time Seen by Provider: 14:20 Initial Comments Patient is a 45-year-old female who checks back into the emergency department this afternoon with a chief complaint of feeling paranoid and hearing a jumble of voices in her head. Patient states that she was discharged from the emergency department and thought her family would come and get her but they did not. According to Porsha her nurse she wandered around the hospital property before deciding to come back in to the emergency department. Patient believes that she needs inpatient help. She continues to deny suicidal or homicidal ideation. She had checked in earlier this morning with a chief complaint of feeling bugs crawling all over her skin. She states on discharge earlier that that sensation was better but again complains of increasing anxiety and depression. I did call [facility] and they declined admission secondary reportedly to interactions with staff on the unit when she was hospitalized a couple of weeks ago. That was an involuntary hold at that time. Patient has been pleasant here in the department. Nonconfrontational. She repeats that she thinks she needs to be inpatient. All other review of systems reviewed and negative except as stated above. Timing/Duration: just prior to arrival Severity: moderate Associated Symptoms: anxiety, impaired concentration Allergies and Home Medications Allergies Coded Allergies: morphine (Unverified Allergy, Unknown, NAUSEA, 04/14/12) Emesis promethazine HCl (Unverified Allergy, Unknown, 04/14/12) Restless Legs Home Medications Lorazepam 1 Mg Tablet, 1 MG PO BID PRN for ANXIETY Prescribed by: LIVIA TOLBERT on 07/18/20 1351 Patient Home Medication List Home Medication List Reviewed: Yes Review of Systems Constitutional: see HPI EENTM: no symptoms reported Respiratory: no symptoms reported Cardiovascular: no symptoms reported Gastrointestinal: no symptoms reported Genitourinary: no symptoms reported : No Musculoskeletal: no symptoms reported Skin: no symptoms reported Psychiatric/Neurological: Anxiety, Depressed, Emotional Problems All Other Systems Reviewed Negative Unless Noted: Yes Past Rnegkhp-Nekchx-Bwmeyl Hx Patient Social History Alcohol Use: Denies Use Smoking Status: Former Smoker Type Used: Cigarettes, Electronic/Vapor Recent Infectious Disease Expo: No Recent Hopitalizations: No Immunizations Up To Date Date of Influenza Vaccine: Mar 29, 2012 Past Medical History Surgeries: Yes (gallbladder-2004) Section, Orthopedic Respiratory: No Cardiac: No High Cholesterol Neurological: Yes Headaches /Migraines Reproductive Disorders: No ACCOUNT SUPERVISOR History: Menopausal Genitourinary: No Gastrointestinal: Yes Musculoskeletal: Yes Back Injury, Chronic Back Pain Endocrine: Yes Diabetes, Non-Insulin dep HEENT: No Cancer: No Psychosocial: Yes Anxiety, Depression Integumentary: No Blood Disorders: No Physical Exam Vital Signs - First Documented 11/03/20 14:00 Temp 37.0 Pulse 95 Resp 18 B/P (MAP) 108/68 (81) Pulse Ox 97 Capillary Refill : Less Than 3 Seconds Height, Weight, BMI Height: 5'8.00" Weight: 287lbs. 1.0oz. 130.806175ui; 44.00 BMI Method:Stated General Appearance: WD/WN, no apparent distress Respiratory: no respiratory distress, no accessory muscle use Cardiovascular: regular rate, rhythm Gastrointestinal: non tender, soft Extremities: normal range of motion, normal inspection Neurologic/Psychiatric: alert, normal mood/affect, oriented x 3 Appearance/Memory: appropriate appearance, neat Behavior/Eye Contact: cooperative, normal speech, avoids eye contact Thoughts/Hallucinations: normal thought pattern, auditory hallucinations, paranoid Skin: normal color, warm/dry Progress/Results/Core Measures Results/Orders Vital Signs/I&O 11/03/20 14:00 Temp 37.0 Pulse 95 Resp 18 B/P (MAP) 108/68 (81) Pulse Ox 97 Blood Pressure Mean: 81 Progress Progress Note : Time: 14:35 Progress Note Patient tells me that she has spoken with her brother who lives in [place], he is coming to get her. He tells her that he has made arrangements for her to go inpatient at a facility in [place]. Patient is going to arrange for her or son to bring her some clothes so that when her brother gets here she has them to go to [place]. [id number] Noticed that patient had eloped from her room. Notified Claritza her nurse. She is nowhere to be found in the department. Departure Impression Primary Impression: Depression Qualified Codes: F32.9 - Major depressive disorder, single episode, unspecified Additional Impressions: Anxiety Psychosis Qualified Codes: F29 - Unspecified psychosis not due to a substance or known physiological condition Disposition: 07 AGAINST MEDICAL ADVICE Condition: Stable Departure-Patient Inst. Referrals: NO,LOCAL PHYSICIAN (PCP/Family) Primary Care Physician FLAVIA METZ MD November 03, 2020 14:35
[2020-11-03 15:49] VITALS: BP 0/0
== END 2020-11-03 15:49 | disposition left against medical advice (07) ==
LOC: EDUNIT# 13:58 → ER 13:59
DX: F32.9 Major depressive disorder, single episode, unspecified (principal); F41.9 Anxiety disorder, unspecified; F29 Unspecified psychosis not due to a substance or known physiological condition; Z88.5 Allergy status to narcotic agent; Z88.8 Allergy status to other drugs, medicaments and biological substances; Z87.891 Personal history of nicotine dependence
CPT/HCPCS: 99283